=== PATIENT | male | born 1965 | race Caucasian/White ===

== ENCOUNTER 2023-10-03 11:45 | Inpatient (IN) | payer MEDICAID, OTHER ==
[~2023-10-03] VITALS: Ht 172.7 cm; Wt 59.9 kg
[2023-10-03] MEDS ORDERED: IV NORMAL SALINE 1000 ML BAG IV ONE (12:15)
[2023-10-03 12:29] LABS: BASOPHILS # (AUTO) 0.2 K/UL (0.0-0.2); BASOPHILS % (AUTO) 2.9 % (0.0-2.0); EOSINOPHILS # (AUTO) 0.1 K/uL (0.0-0.7); EOSINOPHILS % (AUTO) 1.2 % (0.0-7.0); HEMATOCRIT 28.6 % (36.7-47.1); HEMOGLOBIN 9.7 g/dL (12.5-16.3); LYMPHOCYTES # (AUTO) 1.1 K/uL (0.8-4.8); LYMPHOCYTES % (AUTO) 14.7 % (20.5-51.5); MEAN CORPUSCULAR HEMOGLOBIN 31.3 uug (23.8-33.4); MEAN CORPUSCULAR HGB CONC 34 g/dL (32.5-36.3); MONOCYTES # (AUTO) 0.2 K/uL (0.1-1.30); MONOCYTES % (AUTO) 3.2 % (0.0-11.0); NEUTROPHILS # (AUTO) 5.8 K/uL (1.8-8.9); PLATELET COUNT (AUTO) 220 K/uL (152-348); RED BLOOD CELL COUNT(AUTO) 3.11 MIL/uL (4.06-5.63); RED CELL DISTRIBUTION WIDTH 14.1 % (12.1-16.2); WHITE BLOOD COUNT (AUTO) 7.5 K/uL (3.6-10.2)
[2023-10-03 12:37] LABS: CALCIUM 8.7 mg/dL (8.5-10.1); CARBON DIOXIDE 25 mmol/L (21-32); CHLORIDE 85 mmol/L (98-107); CREATININE 0.6 mg/dL (0.6-1.3); GLUCOSE 109 mg/dL (74-106); POTASSIUM 3.8 mmol/L (3.5-5.1); SODIUM SERUM 121 mmol/L (136-145); UREA NITROGEN, BLOOD 14 mg/dL (7-18)
[2023-10-03 12:46] LABS: ALANINE AMINOTRANSFERASE 48 U/L (16-63); ALKALINE PHOSPHATASE 120 U/L (50-136); ASPARTATE AMINOTRANSFERASE 32 U/L (15-37); BILIRUBIN,DIRECT 0.2 mg/dL (0.0-0.2); BILIRUBIN,TOTAL 0.6 mg/dL (0.2-1.0); TOTAL PROTEIN, SERUM 6.3 g/dL (6.4-8.2)
[2023-10-03 12:59] LABS: ETHANOL < 3 MG/DL (0-10)
[2023-10-03] MEDS ORDERED: METF-441 PO (14:14)
[2023-10-03] MEDS ORDERED: QUET25TA PO (14:14)
[2023-10-03] MEDS ORDERED: FURO20TA4 PO (14:14)
[2023-10-03] MEDS ORDERED: MIRT-73 PO (14:14)
[2023-10-03] MEDS ORDERED: FAMO20TA8 PO (14:14)
[2023-10-03] MEDS ORDERED: LORAZEPAM (14:14)
[2023-10-03] MEDS ORDERED: TAMS-3 PO (14:14)
[2023-10-03] MEDS ORDERED: levETIRAcetam IV 1,000 MG in IV DEXTROSE 5% 100 ML IV ONE (14:30)
[2023-10-03] MEDS ORDERED: LORAZEPAM 2 MG/1 ML VIAL IV PRN (17:00)
[2023-10-03] MEDS ORDERED: ACETAMINOPHEN 650 MG SUPP.RECT RC PRN (17:00)
[2023-10-03] MEDS ORDERED: ONDANSETRON 4 MG/2 ML VIAL IV PRN (17:00)
[2023-10-03] MEDS ORDERED: MORPHINE SULFATE 2 MG/1 ML DISP.SYRIN IV PRN (17:00)
[2023-10-03 20:16] VITALS: BP 129/80; TEMP 97.8; O2SAT 98
[2023-10-03] MEDS: levETIRAcetam IV 500 MG in IV DEXTROSE 5% 100 ML IV SCH (21:00)
[2023-10-03 22:57] VITALS: BP 105/52; TEMP 97.4; O2SAT 98
[2023-10-04] MEDS ORDERED: levETIRAcetam 500 MG/5 ML LIQUID UDC ONE (01:49)
[2023-10-04 05:12] VITALS: BP 109/74; TEMP 97.6; O2SAT 98
[2023-10-04 06:16] LABS: BASOPHILS % (AUTO) 0.2 % (0.0-2.0); EOSINOPHILS % (AUTO) 0.1 % (0.0-7.0); HEMATOCRIT 28.9 % (36.7-47.1); LYMPHOCYTES # (AUTO) 1.2 K/uL (0.8-4.8); LYMPHOCYTES % (AUTO) 19.9 % (20.5-51.5); MEAN CORPUSCULAR HEMOGLOBIN 31.9 uug (23.8-33.4); MEAN CORPUSCULAR HGB CONC 35 g/dL (32.5-36.3); MEAN CORPUSCULAR VOLUME 92.2 fL (73.0-96.2); MONOCYTES # (AUTO) 0.3 K/uL (0.1-1.30); MONOCYTES % (AUTO) 5.2 % (0.0-11.0); NEUTROPHILS # (AUTO) 4.7 K/uL (1.8-8.9); NEUTROPHILS % (AUTO) 74.6 % (38.5-71.5); PLATELET COUNT (AUTO) 242 K/uL (152-348); RED BLOOD CELL COUNT(AUTO) 3.14 MIL/uL (4.06-5.63); WHITE BLOOD COUNT (AUTO) 6.3 K/uL (3.6-10.2)
[2023-10-04 06:49] LABS: DIFFERENTIAL COMMENT 1
[2023-10-04 07:06] LABS: THYROID STIMULATING HORMONE 3.505 mIU/mL (0.358-3.740)
[2023-10-04 07:15] LABS: ALBUMIN 2.9 g/dL (3.4-5.0); BILIRUBIN,TOTAL 1.3 mg/dL (0.2-1.0); CALCIUM 8.3 mg/dL (8.5-10.1); CREATININE 0.7 mg/dL (0.6-1.3); PHOSPHOROUS 3.2 mg/dL (2.5-4.9); POTASSIUM 4.1 mmol/L (3.5-5.1); TOTAL PROTEIN, SERUM 6.3 g/dL (6.4-8.2); URIC ACID 4.8 mg/dL (3.5-7.2)
[2023-10-04] MEDS: IV D5/ 0.9% NACL 1,000 ML IV PRN (08:25)
[2023-10-04 08:44] LABS: MAGNESIUM 0.9 mg/dL (1.8-2.4)
[2023-10-04] MEDS: PANTOPRAZOLE SODIUM 40 MG VIAL IV SCH (09:52)
[2023-10-04] MEDS: levETIRAcetam IV 500 MG in IV DEXTROSE 5% 100 ML IV SCH ×2 (09:52→21:10)
[2023-10-04 11:00] VITALS: BP 105/67; TEMP 98.4; O2SAT 100
[2023-10-04] MEDS: MAGNESIUM SULFATE/D5W 100 ML IV SCH ×3 (13:49→16:03)
[2023-10-04 15:11] VITALS: BP 122/75; TEMP 98.4; O2SAT 98
[2023-10-04 20:00] VITALS: BP 136/83; TEMP 98.5; O2SAT 100
[2023-10-05 00:27] VITALS: BP 142/90; TEMP 97.9; O2SAT 100
[2023-10-05 05:21] VITALS: BP 136/79; TEMP 97.4; O2SAT 100
[2023-10-05] MEDS: IV D5/ 0.9% NACL 1,000 ML IV PRN (06:39)
[2023-10-05 07:20] LABS: BASOPHILS % (AUTO) 0.3 % (0.0-2.0); EOSINOPHILS % (AUTO) 0.1 % (0.0-7.0); HEMOGLOBIN 10.2 g/dL (12.5-16.3); LYMPHOCYTES # (AUTO) 1.7 K/uL (0.8-4.8); LYMPHOCYTES % (AUTO) 25.5 % (20.5-51.5); MEAN CORPUSCULAR HEMOGLOBIN 31.7 uug (23.8-33.4); MEAN CORPUSCULAR HGB CONC 34 g/dL (32.5-36.3); MEAN CORPUSCULAR VOLUME 93.1 fL (73.0-96.2); MONOCYTES # (AUTO) 0.4 K/uL (0.1-1.30); MONOCYTES % (AUTO) 6.2 % (0.0-11.0); NEUTROPHILS # (AUTO) 4.4 K/uL (1.8-8.9); NEUTROPHILS % (AUTO) 67.9 % (38.5-71.5); PLATELET COUNT (AUTO) 246 K/uL (152-348); RED BLOOD CELL COUNT(AUTO) 3.23 MIL/uL (4.06-5.63); RED CELL DISTRIBUTION WIDTH 14.5 % (12.1-16.2); WHITE BLOOD COUNT (AUTO) 6.5 K/uL (3.6-10.2)
[2023-10-05 08:04] LABS: DIFFERENTIAL COMMENT 1
[2023-10-05 08:08] LABS: ALANINE AMINOTRANSFERASE 49 U/L (16-63); ALBUMIN 2.9 g/dL (3.4-5.0); ALKALINE PHOSPHATASE 112 U/L (50-136); ASPARTATE AMINOTRANSFERASE 43 U/L (15-37); BILIRUBIN,TOTAL 1.1 mg/dL (0.2-1.0); CARBON DIOXIDE 27 mmol/L (21-32); CHLORIDE 94 mmol/L (98-107); CREATININE 0.6 mg/dL (0.6-1.3); GLUCOSE 70 mg/dL (74-106); MAGNESIUM 1.5 mg/dL (1.8-2.4); PHOSPHOROUS 2.6 mg/dL (2.5-4.9); POTASSIUM 3.6 mmol/L (3.5-5.1); SODIUM SERUM 129 mmol/L (136-145); TOTAL PROTEIN, SERUM 6.4 g/dL (6.4-8.2); UREA NITROGEN, BLOOD 5 mg/dL (7-18)
[2023-10-05 08:18] LABS: CALCIUM 8.9 mg/dL (8.5-10.1)
[2023-10-05] MEDS: PANTOPRAZOLE SODIUM 40 MG VIAL IV SCH (08:52)
[2023-10-05] MEDS: levETIRAcetam IV 500 MG in IV DEXTROSE 5% 100 ML IV SCH (09:00)
[2023-10-05] MEDS: levETIRAcetam 500 MG TABLET PO SCH ×2 (10:07→20:38)
[2023-10-05 11:27] VITALS: BP 131/81; TEMP 97.3; O2SAT 100
[2023-10-05] MEDS ORDERED: MAGNESIUM OXIDE 400 MG TABLET PO ONE (15:45)
[2023-10-05 15:54] VITALS: BP 139/89; TEMP 97.6; O2SAT 98
[2023-10-05 20:06] VITALS: BP 134/86; TEMP 98; O2SAT 98
[2023-10-06 04:15] VITALS: BP 144/97; TEMP 98.2; O2SAT 99
[2023-10-06] MEDS ORDERED: PANTOPRAZOLE SODIUM 40 MG TABLET.DR PO SCH (07:00)
[2023-10-06] MEDS: levETIRAcetam 500 MG TABLET PO SCH (08:21)
[2023-10-06 12:00] VITALS: BP 141/77; TEMP 97.2; O2SAT 97
[2023-10-06] MEDS ORDERED: LEVE500T9 PO (13:58)
[2023-10-06] MEDS ORDERED: METF-440 PO (13:58)
[2023-10-06] MEDS ORDERED: TAMS-3 PO (14:01)
[2023-10-06 16:00] VITALS: BP 140/92; TEMP 97.2; O2SAT 97
== END 2023-10-06 16:30 | DRG 53 ==
LOC: EDBD 11:45 → ER 11:45 → MEDSURG3 19:32 → TELE3 20:15 → MEDSURG3 10-05 09:37
PROVIDERS: ADMIT Internal Medicine; ATTEND Internal Medicine
DX: G40.409 Other generalized epilepsy and epileptic syndromes, not intractable, without status epilepticus (principal); G93.49 Other encephalopathy; E44.0 Moderate protein-calorie malnutrition; E87.1 Hypo-osmolality and hyponatremia; E88.09 Other disorders of plasma-protein metabolism, not elsewhere classified; K21.9 Gastro-esophageal reflux disease without esophagitis; R62.7 Adult failure to thrive; Z68.20 Body mass index [BMI] 20.0-20.9, adult; N40.0 Benign prostatic hyperplasia without lower urinary tract symptoms; Z87.891 Personal history of nicotine dependence; Z86.73 Personal history of transient ischemic attack (TIA), and cerebral infarction without residual deficits; E11.9 Type 2 diabetes mellitus without complications; Z79.84 Long term (current) use of oral hypoglycemic drugs
CPT/HCPCS: 36415; 70450; 71045; 82533; 83550; 83735; 84100; 84443; 84550; 85025; 93005; C9113; G0378; G0480; J1953; J3475; J7040; J7042